=== PATIENT | female | born 2000 | race Caucasian/White ===

== ENCOUNTER 2024-09-11 19:16 | Emergency (ER) | payer MEDICAID ==
[~2024-09-11] VITALS: Ht 152.4 cm; Wt 66.0 kg
[2024-09-11 20:32] VITALS: O2SAT 100
[2024-09-11 20:38] LABS: CLARITY URINE CLOUDY (CLEAR); COLOR URINE ORANGE (YELLOW); GLUCOSE URINE NEGATIVE (NEGATIVE); KETONES URINE TRACE (NEGATIVE); LEUKOCYTE ESTERASE URINE TRACE (NEGATIVE); NITRITE URINE NEGATIVE (NEGATIVE); OCCULT BLOOD URINE 3+ (NEGATIVE); PH URINE 5.5 (4.5-8.0); PROTEIN URINE 1+ (NEGATIVE); SPECIFIC GRAVITY URINE 1.031 (1.005-1.030); UROBILINOGEN URINE 0.2 E.U./dL (0.2-1.0)
[2024-09-11 20:52] LABS: BACTERIA URINE 1+; RBC URINE TNTC /hpf (0-2); SQUAMOUS EPITHELIAL CELL URINE 1+ /lpf (RARE/1+)
[2024-09-11 20:53] LABS: WBC URINE 0-2 /hpf (0-2)
[2024-09-11] MEDS ORDERED: BO1 TP (23:15)
[2024-09-11 23:28] VITALS: BP 120/67; PULSE 88; RESP 16; TEMP 36.8; O2SAT 99
== END 2024-09-11 23:29 | disposition home or self-care (01) ==
LOC: ER 19:16
DX: N89.8 Other specified noninflammatory disorders of vagina (principal); J45.909 Unspecified asthma, uncomplicated; Z98.890 Other specified postprocedural states
CPT/HCPCS: 81003; 81025; 99284